=== PATIENT | female | born 1990 | race Caucasian/White ===

== ENCOUNTER 2023-06-19 20:53 | Emergency (ER) | payer SELFPAY ==
[2023-06-19 21:04] VITALS: BP 162/101; PULSE 100; RESP 17; O2SAT 95; BMI 46.3
--- NOTE | 2023-06-19 21:12 | ED_ITS ---
HPI - Dental/Oral General: Chief complaint: Dental/Oral Stated complaint: Tooth Ache Time Seen by Provider: 06/19/23 21:12 History of Present Illness: 33-year-old female comes in today with p ersistent jaw pain. Patient states that she has had a dental infection and was recently on amoxicillin for the infection which improved her symptoms but patient then had increasing symptoms when she stopped the antibiotic. Patient appears nontoxic. Patient appears no acute distress. Review of Systems General: Reports: 10 or more systems reviewed and unremarkable except in HPI and below ENMT: Reports: dental pain Physical Exam Const: COMMON NORMALS: alert HENMT: COMMON NORMALS: normocephalic HEAD & SCALP: normocephalic TEETH & GINGIVA: Yes fair dentition Neck/C-Spine: COMMON NORMALS: no meningeal signs Resp: COMMON NORMALS: normal respiratory effort Cardio: COMMON NORMALS: regular rate RATE: regular rate Back/Pelvis: COMMON NORMALS: thoracic and lumbar spine normal to inspection Extremity: COMMON NORMALS: full ROM Neuro: SENSORIUM/ORIENTATION: Yes alert MENINGEAL SIGNS: Yes no meningeal signs Skin: COMMON NORMALS: turgor normal GENERAL SKIN EXAM: turgor normal Course Vital Signs: Vital signs: Vital Signs Temperature 98.7 F 06/19/23 21:29 Pulse Rate 96 06/19/23 21:29 Respiratory Rate 16 06/19/23 21:29 Blood Pressure 158/96 06/19/23 21:29 Pulse Oximetry 96 06/19/23 21:29 Oxygen Delivery Me thod Room Air 06/19/23 21:04 MDM - Dental/Oral Medical Decision Making 33-year-old female comes in today with dental pain. Patient reports increased pain and discomfort with recent dental infection. Patient had completed her antibiotics but states that has had increased pain. No significant swelling or redness is noted to the mouth. Patient is managing secretions well. Differential diagnosis includes malingering, toothache, dental abscess, gingivitis. Reviewed exam with patient with recommendations for treatment and follow-up. Patient was encouraged to follow-up with dentist. Patient was started on Augmentin liquid 1000 mg twice a day for the next 7 days. Patient reports understanding of care plan need for follow-up or return to the ER. No radiology studies performed this visit Discharge Plan Discharge Patient Disposition: Home Clinical Impression: Dental abscess Condition: Stable Prescriptions: New Augmentin ES-600 600-42.9 mg/5 mL suspension for reconstitution 10 ml PO BID 7 Days Qty: 140 0RF Discharge Orders: Discharge ED (Routine); Ordered 06/19/23 Ordered By: Juan Fuchs Discharge Diet: Usual diet Discharge Activity: Increase activity as tolerated Patient Instructions: Dental Abscess (ED) Activity Restrictions/Additional Instructions: Take antibiotic as directed. Drink plenty of water and fluids. Follow-up with dentist for definitive care. Return to ED for new concerns. Coding Level of Care Code ED Merch[employer]ise Execution Leader for Fadi Mayberry
[2023-06-19] MEDS: amoxicillin-clav 250-62.5 mg/5 mL 75 mL Bulk 500 MG PO (21:24)
[2023-06-19 21:29] VITALS: BP 158/96; PULSE 96; RESP 16; TEMP 37.1; O2SAT 96
== END 2023-06-19 21:30 | disposition home or self-care (01) ==
PROVIDERS: Emergency Provider Nurse Practitioner Family
DX: K04.7 Periapical abscess without sinus (principal)
CPT/HCPCS: 99283